=== PATIENT | male | born 1980 | race Caucasian/White ===

== ENCOUNTER 2024-08-18 15:13 | Emergency (ER) | payer BC, MEDICAID ==
[~2024-08-18] VITALS: Ht 177.8 cm; Wt 77.1 kg
[2024-08-18 15:50] LABS: *BILIRUBIN,URIN NEGATIVE (NEGATIVE); *BLOOD, URINE NEGATIVE (NEGATIVE); *CLARITY,URINE SLIGHTLY CLOUDY (CLEAR); *COLOR,URINE YELLOW (YELLOW); *KETONES,URINE TRACE (NEGATIVE); *PROTEIN,URINE 2+ (NEGATIVE); *UROBILINOGEN,URINE 0.2 E.U./dl (NORMAL); LEUKOCYTE ESTERASE ,URINE NEGATIVE (NEGATIVE); NITRITE, URINE NEGATIVE (NEGATIVE); PH,URINE 5.5 (5.0-8.0); UGLUCOSE NEGATIVE (NEGATIVE)
[2024-08-18 16:21] LABS: BACTERIA,URINE NONE SEEN /HPF (NONE SEEN); RBC,URINE NONE SEEN /HPF (0-3); SQUAMOUS EPITHELIAL CELL,UR NONE SEEN /HPF (NONE SEEN); WBC,URINE NONE SEEN /HPF (0-3)
[2024-08-18 16:22] LABS: URINE AMORPHOUS URATE MODERATE /HPF
[2024-08-18 16:55] LABS: BASOPHILS % (AUTO) 0.3 % (0.0-2.0); HEMATOCRIT 45.6 % (36.7-47.1); HEMOGLOBIN 15.5 g/dL (12.5-16.3); LYMPHOCYTES # (AUTO) 0.9 K/uL (0.8-4.8); LYMPHOCYTES % (AUTO) 6.6 % (20.5-51.5); MEAN CORPUSCULAR HEMOGLOBIN 29.5 uug (23.8-33.4); MEAN CORPUSCULAR HGB CONC 34 g/dL (32.5-36.3); MEAN CORPUSCULAR VOLUME 86.7 fL (73.0-96.2); MONOCYTES # (AUTO) 0.9 K/uL (0.1-1.30); MONOCYTES % (AUTO) 6.6 % (0.0-11.0); NEUTROPHILS # (AUTO) 12.3 K/uL (1.8-8.9); NEUTROPHILS % (AUTO) 86.5 % (38.5-71.5); PLATELET COUNT (AUTO) 341 K/uL (152-348); RED BLOOD CELL COUNT(AUTO) 5.26 MIL/uL (4.06-5.63); RED CELL DISTRIBUTION WIDTH 13.6 % (12.1-16.2); WHITE BLOOD COUNT (AUTO) 14.2 K/uL (3.6-10.2)
[2024-08-18] MEDS ORDERED: HYDR-3980 PO (17:01)
[2024-08-18] MEDS ORDERED: KETO10TA2 PO (17:01)
[2024-08-18] MEDS ORDERED: ONDA4TAB5 PO (17:01)
[2024-08-18] MEDS ORDERED: KETOROLAC TROMETHAMINE 30 MG INJ ONE (17:02)
[2024-08-18] MEDS ORDERED: ONDANSETRON 4 MG/2 ML VIAL ONE (17:02)
[2024-08-18] MEDS ORDERED: HYDROMORPHONE 1 MG/1 ML DISP.SYRIN ONE (17:02)
[2024-08-18 17:05] LABS: DIFFERENTIAL COMMENT 1
[2024-08-18 17:07] LABS: CALCIUM 9.5 mg/dL (8.5-10.1); CREATININE 1.4 mg/dL (0.6-1.3); POTASSIUM 4.3 mmol/L (3.5-5.1)
[2024-08-18] MEDS: HYDROMORPHONE 1 MG/1 ML DISP.SYRIN IV ONE (17:07)
[2024-08-18] MEDS: IV NS 1000 ML 1,000 ML IV ONE (17:08)
[2024-08-18] MEDS: ONDANSETRON 4 MG/2 ML VIAL IV ONE (17:08)
[2024-08-18] MEDS: KETOROLAC TROMETHAMINE 30 MG INJ IVP ONE (17:08)
[2024-08-18 17:19] VITALS: BP 139/81; O2SAT 99
== END 2024-08-18 17:19 | disposition home or self-care (01) ==
LOC: ER 15:13
DX: N20.1 Calculus of ureter (principal); R10.9 Unspecified abdominal pain; Z79.899 Other long term (current) drug therapy; Z88.0 Allergy status to penicillin
CPT/HCPCS: 36415; 85025; A4606; A4663; J1171; J1885; J2405; J7040